=== PATIENT | female | born 1975 | race Caucasian/White ===

== ENCOUNTER → 2020-07-07 | Outpatient (CLI) | payer OTHER ==
[~2020-07-07] MED LIST: CYANOCOBAL1000 MCG/1 INJ; IBUPROFEN600 MG PO; LISINOPRIL20 MG PO; NORCO 5-325 TA1 EACH PO; OMEPRAZOLE40 MG PO; RANITIDINE HCL150 MG PO; WELLBUTRIN SR150 M1 PO; ZOFRAN ODT 4 MG4 MG PO
[2020-07-07 10:18] LABS: HEMOGLOBIN 12.8 gm/dl (12.3-15.3); RED BLOOD COUNT 4.42 M/UL (4.00-5.10); WHITE BLOOD COUNT 5.7 K/UL (4.5-11.0)
[2020-07-07 10:37] LABS: BUN/CREATININE RATIO 13 (0-10)
[2020-07-08 11:14] LABS: FSH, SERUM 2.9 mIU/mL (.); INSULIN 35.1 uIU/mL (2.6-24.9); PROGESTERONE 7.7 ng/mL (.)
[2020-07-11 15:11] LABS: ESTRADIOL 77.2 pg/mL (.)
[2020-07-14 15:12] LABS: FREE TESTOSTERONE(DIRECT) 3.1 pg/mL (0.0-4.2)
== END ==
LOC: LAB 09:38
PROVIDERS: Nurse Practitioner Family
DX: K21.9 Gastro-esophageal reflux disease without esophagitis (principal); F32.9 Major depressive disorder, single episode, unspecified; I10 Essential (primary) hypertension; E66.09 Other obesity due to excess calories; G50.0 Trigeminal neuralgia; G43.711 Chronic migraine without aura, intractable, with status migrainosus; M54.2 Cervicalgia; N92.1 Excessive and frequent menstruation with irregular cycle; C18.9 Malignant neoplasm of colon, unspecified; K22.70 Barrett's esophagus without dysplasia; R53.82 Chronic fatigue, unspecified
CPT/HCPCS: 36415; 80053; 80061; 82607; 82652; 82670; 82679; 83001; 83002; 84144; 84402; 84403; 84443; 85025

== ENCOUNTER 2021-06-29 01:43 | Emergency (ER) | payer OTHER ==
[2021-06-29] MEDS ORDERED: MACROBID 100 M100 MG PO (03:34)
== END 2021-06-29 03:38 | disposition home or self-care (01) ==
LOC: ER1 01:43
DX: U07.1 COVID-19 (principal); N39.0 Urinary tract infection, site not specified; I10 Essential (primary) hypertension; Z90.710 Acquired absence of both cervix and uterus; Z88.0 Allergy status to penicillin
CPT/HCPCS: 0240U; 71045; 81001; 99283

== ENCOUNTER → 2021-10-07 | Outpatient (CLI) | payer OTHER ==
[~2021-10-07] MED LIST changes: +MACROBID 100 M100 MG PO
[2021-10-07 19:11] LABS: HEMOGLOBIN 11.7 gm/dl (12.3-15.3); RED BLOOD COUNT 4.13 M/UL (4.00-5.10); WHITE BLOOD COUNT 6.4 K/UL (4.5-11.0)
[2021-10-07 19:30] LABS: BUN/CREATININE RATIO 17 (0-10)
[2021-10-09 12:11] LABS: FSH 24.7 mIU/mL (.); LUTEINIZING HORMONE(LH) 24.6 mIU/mL (.); PROGESTERONE <0.1 ng/mL (.); TESTOSTERONE, SERUM 16 ng/dL (4-50)
[2021-10-09 16:11] LABS: ENDOMYSIAL ANTIBODY IGA Negative (Negative); IMMUNOGLOBULIN A, QN, SERUM 301 mg/dL (87-352); IMMUNOGLOBULIN G, QN, SERUM 1075 mg/dL (586-1602); IMMUNOGLOBULIN M, QN, SERUM 46 mg/dL (26-217); T-TRANSGLUTAMINASE (TTG) IGA <2 U/mL (0-3)
== END ==
LOC: LAB 18:01
PROVIDERS: Nurse Practitioner
DX: M15.9 Polyosteoarthritis, unspecified (principal); R53.83 Other fatigue; Z79.1 Long term (current) use of non-steroidal anti-inflammatories (NSAID); Z79.899 Other long term (current) drug therapy
CPT/HCPCS: 80053; 80061; 82150; 82670; 82672; 82679; 82784; 82785; 83001; 83002; 83036; 83690; 84144; 84403; 84439; 84443; 85025; 85652; 86140; 86200; 86430; 86431

== ENCOUNTER → 2021-11-27 | Outpatient (CLI) | payer OTHER ==
[2021-11-27 12:45] LABS: HEMOGLOBIN 12.4 gm/dl (12.3-15.3); RED BLOOD COUNT 4.28 M/UL (4.00-5.10); WHITE BLOOD COUNT 4.9 K/UL (4.5-11.0)
[2021-11-27 17:23] LABS: BUN/CREATININE RATIO 14 (0-10)
[2021-11-28 07:11] LABS: HEMOGLOBIN A1C 6.1 % (4.8-5.6)
[2021-11-28 08:14] LABS: CHOLESTEROL, TOTAL 160 mg/dL (100-199); HBSAG SCREEN Negative (Negative); HCV AB 0.1 (0.0-0.9); HDL CHOLESTEROL 49 mg/dL (>39); HEP A AB, IGM Negative (Negative); HEP B CORE AB, IGM Negative (Negative); LDL CHOLESTEROL CALC 64 mg/dL (0-99); LDL/HDL RATIO 1.3 ratio (0.0-3.2); T. CHOL/HDL RATIO 3.3 ratio (0.0-4.4); TRIGLYCERIDES 298 mg/dL (0-149)
== END ==
LOC: RT 11:58
PROVIDERS: Nurse Practitioner
DX: R42 Dizziness and giddiness (principal); R53.83 Other fatigue; H53.2 Diplopia; Z85.038 Personal history of other malignant neoplasm of large intestine
CPT/HCPCS: 36415; 71046; 80053; 80061; 80074; 82550; 82607; 82652; 83036; 84439; 84443; 84550; 85025; 85652; 86140; 93005

== ENCOUNTER → 2021-12-27 | Outpatient (CLI) | payer OTHER ==
[2021-12-27 03:01] LABS: HEMOGLOBIN 11.7 gm/dl (12.3-15.3); RED BLOOD COUNT 4.1 M/UL (4.00-5.10); WHITE BLOOD COUNT 7.2 K/UL (4.5-11.0)
[2021-12-27 03:41] LABS: BUN/CREATININE RATIO 16 (0-10)
[2021-12-28 07:11] LABS: HBSAG SCREEN Negative (Negative); HCV AB <0.1 (0.0-0.9); HEP A AB, IGM Negative (Negative); HEP B CORE AB, IGM Negative (Negative)
[2021-12-29 15:09] LABS: IGG P18 AB. Absent (.); IGG P23 AB. Absent (.); IGG P28 AB. Present (.); IGG P30 AB. Absent (.); IGG P39 AB. Absent (.); IGG P41 AB. Present (.); IGG P45 AB. Absent (.); IGG P58 AB. Present (.); IGG P66 AB. Absent (.); IGG P93 AB. Absent (.); IGM P23 AB. Absent (.); IGM P39 AB. Absent (.); IGM P41 AB. Absent (.); LYME IGG LB INTERP. Negative (.); LYME IGM LB INTERP. Negative (.)
== END ==
LOC: LAB 00:28
PROVIDERS: Nurse Practitioner Family
DX: R50.9 Fever, unspecified (principal); R19.7 Diarrhea, unspecified; M25.50 Pain in unspecified joint; Z20.822 Contact with and (suspected) exposure to COVID-19
CPT/HCPCS: 0240U; 71046; 80053; 80074; 81001; 82728; 83605; 84443; 85025; 85379; 85652; 86140; 86403; 86617; 86757; 87045; 87046